=== PATIENT | female | born 1995 | race Caucasian/White ===

== ENCOUNTER → 2022-11-21 13:34 | Outpatient (BNVA) | payer OTHER, SELFPAY | PROVIDERS: Family Provider Family Medicine; PCP Family Medicine; Visit Provider Internal Medicine | DX: R68.89 Other general symptoms and signs (principal); Z68.37 Body mass index [BMI] 37.0-37.9, adult | CPT/HCPCS: 36415; 84439; 84443; 86376; 99203 ==

== ENCOUNTER 2022-11-23 11:39 | Outpatient (CLI) | payer OTHER, SELFPAY ==
[2022-11-23 12:47] LABS: Urine Creatinine 73 mg/dL (28-217)
[2022-11-23 13:11] LABS: Creatinine 24 Hour Urine 1113.3 mg/dL (601-1689); Total Volume Urine 1525 ml
[2022-12-05 07:24] LABS: Free Cortisol Urine 16.7 mcg/24 h (4.0-50.0); Total Urine 1525 mL; Urine Creatinine 1.08 g/24 h (0.50-2.15)
== END 2022-11-23 11:40 | disposition home or self-care (01) ==
PROVIDERS: PCP Family Medicine; Visit Provider Internal Medicine
DX: R63.5 Abnormal weight gain (principal); Z68.37 Body mass index [BMI] 37.0-37.9, adult; R68.89 Other general symptoms and signs
CPT/HCPCS: 82530; 82570

== ENCOUNTER → 2022-12-14 12:56 | Outpatient (BNVA) | payer OTHER, SELFPAY | PROVIDERS: PCP Family Medicine; Visit Provider Internal Medicine | DX: E66.9 Obesity, unspecified (principal); Z68.37 Body mass index [BMI] 37.0-37.9, adult | CPT/HCPCS: 99213 ==

== ENCOUNTER 2023-01-02 16:58 | Emergency (ER) | payer OTHER, SELFPAY ==
[2023-01-02 17:07] VITALS: BP 133/94; PULSE 97; RESP 14; TEMP 36.7; O2SAT 98; BMI 35.4
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
[2023-01-02] MEDS: naproxen 500 mg Tablet PO (19:33)
[2023-01-02] MEDS: methocarbamol 750 mg Tablet PO (19:33)
[2023-01-02 19:51] VITALS: BP 120/78; PULSE 98; O2SAT 99
== END 2023-01-02 19:52 | disposition home or self-care (01) ==
PROVIDERS: Emergency Provider Emergency Medicine; PCP Family Medicine
DX: S16.1XXA Strain of muscle, fascia and tendon at neck level, initial encounter (principal); V49.88XA Car occupant (driver) (passenger) injured in other specified transport accidents, initial encounter; Y93.89 Activity, other specified; Y92.410 Unspecified street and highway as the place of occurrence of the external cause
CPT/HCPCS: 72040; 99283

== ENCOUNTER → 2023-01-23 13:45 | Outpatient (BNVA) | payer OTHER, SELFPAY | PROVIDERS: PCP Family Medicine; Visit Provider Internal Medicine | DX: E66.9 Obesity, unspecified (principal); Z68.37 Body mass index [BMI] 37.0-37.9, adult | CPT/HCPCS: 99213 ==

== ENCOUNTER → 2023-02-23 15:04 | Outpatient (BNVA) | payer OTHER, SELFPAY | PROVIDERS: PCP Family Medicine; Visit Provider Internal Medicine | DX: E66.9 Obesity, unspecified (principal); Z68.36 Body mass index [BMI] 36.0-36.9, adult | CPT/HCPCS: 99213 ==

== ENCOUNTER → 2023-04-03 10:12 | Outpatient (BNVA) | payer OTHER, SELFPAY | PROVIDERS: PCP Family Medicine; Visit Provider Internal Medicine | DX: E66.9 Obesity, unspecified (principal); Z68.36 Body mass index [BMI] 36.0-36.9, adult; Z79.84 Long term (current) use of oral hypoglycemic drugs | CPT/HCPCS: 99213 ==

== ENCOUNTER → 2023-05-04 10:57 | Outpatient (BNVA) | payer OTHER, SELFPAY | PROVIDERS: PCP Family Medicine; Visit Provider Internal Medicine | DX: E66.9 Obesity, unspecified (principal); Z68.35 Body mass index [BMI] 35.0-35.9, adult | CPT/HCPCS: 99213 ==

== ENCOUNTER → 2023-06-12 09:28 | Outpatient (BNVA) | payer OTHER, SELFPAY | PROVIDERS: PCP Family Medicine; Visit Provider Internal Medicine | DX: E66.9 Obesity, unspecified (principal); Z68.35 Body mass index [BMI] 35.0-35.9, adult | CPT/HCPCS: 99213; 99214 ==

== ENCOUNTER → 2023-08-07 09:56 | Outpatient (BNVA) | payer OTHER, SELFPAY | PROVIDERS: PCP Family Medicine; Visit Provider Internal Medicine | DX: E66.9 Obesity, unspecified (principal); Z68.33 Body mass index [BMI] 33.0-33.9, adult; Z79.84 Long term (current) use of oral hypoglycemic drugs | CPT/HCPCS: 99213 ==

== ENCOUNTER → 2023-09-07 10:37 | Outpatient (BNVA) | payer OTHER, SELFPAY | PROVIDERS: PCP Family Medicine; Visit Provider Internal Medicine | DX: E66.9 Obesity, unspecified (principal); Z68.32 Body mass index [BMI] 32.0-32.9, adult; Z79.84 Long term (current) use of oral hypoglycemic drugs | CPT/HCPCS: 99213 ==

== ENCOUNTER → 2023-10-10 10:46 | Outpatient (BNVA) | payer OTHER, SELFPAY | PROVIDERS: PCP Family Medicine; Visit Provider Internal Medicine | DX: E66.9 Obesity, unspecified (principal); Z79.84 Long term (current) use of oral hypoglycemic drugs; Z68.32 Body mass index [BMI] 32.0-32.9, adult | CPT/HCPCS: 99213 ==

== ENCOUNTER → 2023-11-15 11:58 | Outpatient (BNVA) | payer OTHER, SELFPAY | PROVIDERS: PCP Family Medicine; Visit Provider Internal Medicine | DX: E66.9 Obesity, unspecified (principal); Z68.32 Body mass index [BMI] 32.0-32.9, adult; Z79.84 Long term (current) use of oral hypoglycemic drugs | CPT/HCPCS: 99213 ==

== ENCOUNTER 2025-02-07 11:03 | Outpatient (CLI) | payer OTHER, SELFPAY ==
--- NOTE | 2025-02-07 11:15 | US_ITS ---
WS: [id number] THYROID ULTRASOUND HISTORY: Thyroid Nodule COMPARISON: None available. Right lobe: 1.5 cm x 1.4 cm x 4.3 cm (w x ap x l). Volume: 4.2 cm3. Cyst with mural nodule present in the mid RIGHT thyroid. The entire cyst nodule complex measures 1.0 x 0.9 x 1.5 cm. The mural nodule measures 0.4 x 0.6 x 0.8 cm. Mural nodule contains increased vascularity. No additional nodule. Left lobe: 1.5 cm x 1.0 cm x 4.1 cm (w x ap x l). Volume: 3.0 cm3. Normal size and echotexture. No significant or dominant nodules are present. Isthmus: 0.2 cm. US/US thyroid [id number] IMPRESSION: 1. TI-RADS 3; mildly suspicious nodule RIGHT thyroid. Neural nodule contained within a cyst. Nodule is attached to the wall of the cyst. There is significant increased vascularity within the solid component. Consider fine-needle aspirat ion attempt by ultrasound. 2. Negative LEFT thyroid.
== END 2025-02-07 11:04 | disposition home or self-care (01) ==
LOC: RAD 11:04
PROVIDERS: PCP Family Medicine; Visit Provider Internal Medicine
DX: E04.1 Nontoxic single thyroid nodule (principal)
CPT/HCPCS: 76536

== ENCOUNTER 2025-02-19 13:09 | Outpatient (CLI) | payer OTHER, SELFPAY ==
--- NOTE | 2025-02-19 13:15 | US_ITS ---
WS: [id number] ULTRASOUND THYROID FNA CLINICAL INFORMATION: Thyroid Nodule TECHNIQUE: Ultrasound-guided FNA FINDINGS: The procedure including risks, benefits, and complications were discussed with the patient who agreed to proceed. Timeout was performed. Using sterile technique patient was prepped and draped in usual sterile fashion. After 1% lidocaine, using ultrasound guidance, a 25-gauge needle was advanced into the RIGHT thyroid nodule. 3 passes were made with active aspiration. 3 additional passes were made with a 25-gauge needle. Pathology was present for slide preparation. No immediate complications. Patient remained in the ultrasound suite 10 minutes postprocedure with intermittent ultrasound to ensure no hematoma. No hematoma 10 minutes postprocedure. US/US biopsy/FNA thyroid [id number] IMPRESSION: Uncomplicated ultrasound-guided thyroid FNA Cytology is pending.
== END 2025-02-19 13:10 | disposition home or self-care (01) ==
LOC: RAD 13:10
PROVIDERS: PCP Family Medicine; Visit Provider Internal Medicine
DX: E04.1 Nontoxic single thyroid nodule (principal); D34 Benign neoplasm of thyroid gland
CPT/HCPCS: 10005; 88173